=== PATIENT | male | born 1975 | race Caucasian/White ===

== ENCOUNTER 2018-07-22 01:25 | Emergency (ER) | payer OTHER ==
--- NOTE | 2018-07-22 01:58 | ED ---
Neurological HPI - HPI Summary HPI Summary: The patient is a 42 y/o M presenting to [facility] with a chief complaint of weakness and tingling in the right wrist and right-sided facial tingling starting this morning at 00:30. 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 He was in a position where his right arm was resting on a beam holding the sensor for about ten minutes, and he was using his left hand to tighten the sensor. His hand then suddenly became numb, and he had weakness in the hand as he was unable to grasp things afterwards. He was able to ambulate normally. He denies any pain or numbness in his neck. He felt a right- sided facial tingling when he arrived to the ED. He has not had these symptoms before. He has hx of diabetes, HTN, and hypercholesterolemia. - History of Current Complaint Chief Complaint: EDExtremityUpper Stated Complaint: RIGHT HAND/ARM NUMBNESS Time Seen by Provider: 07/22/18 01:34 Hx Obtained From: Patient Onset/Duration: Sudden Onset Timing: Sudden Onset Current Severity: Moderate Seizure Severity: Moderate Neurological Deficit Location: Facial - right, RUE - wrist Pain Intensity: 0 Pain Scale Used: 0-10 Numeric Character: Numbness/Tingling - in right wrist and right side of face Aggravating: Nothing Alleviating: Nothing Associated Signs and Symptoms: Positive: Weakness - in right wrist. Negative: Unsteady Gait, Neck Pain/Stiffness - Allergy/Home Medications Allergies/Adverse Reactions: Allergies Allergy/AdvReac Type Severity Reaction Status Date / Time bee venom protein (honey bee) Allergy Anaphylatic Verified 07/22/18 01:45 Shock insulation Allergy Severe Swelling Uncoded 07/22/18 01:30 Home Medications: Home Medications glipiZIDE TAB* 5 mg PO DAILY 07/22/18 [History Confirmed 07/22/18] PMH/Surg Hx/FS Hx/Imm Hx Endocrine/Hematology History: Reports: Hx Diabetes Cardiovascular History: Reports: Hx Hypercholesterolemia, Hx Hypertension Denies: Other Cardiovascular Problems/Disorders - FAMILY HISTORY. Infectious Disease History: No Infectious Disease History: Denies: Traveled Outside the [place] in Last 30 Days - Family History Known Family History: Negative: Cardiac Disease - Social History Alcohol Use: Occasionally Substance Use Type: Reports: None Smoking Status (MU): Never Smoked Tobacco Review of Systems Positive: Other - NEGATIVE: pain in neck Neurological: Other - unable to grasp tightly Positive: Weakness, Numbness - in the right wrist and right side of face All Other Systems Reviewed And Are Negative: Yes Physical Exam - Summary Physical Exam Summary: Appearance: Well-appearing, Well-nourished, lying in bed comfortably Skin: Warm, dry, no obvious rash Eyes: sclera anicteric, no conjunctival pallor ENT: mucous membranes moist, pharynx appears normal Neck: Supple, nontender Respiratory: Clear to auscultation, no signs of respiratory distress Cardiovascular: Normal S1, S2. No murmurs. Normal distal pulses in tibial and radial bilaterally. 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 Psychiatric: affect is normal, does not appear anxious or depressed Triage Information Reviewed: Yes Vital Signs On Initial Exam: Initial Vitals Temp Pulse Resp BP Pulse Ox 99.3 F 93 18 171/90 99 07/22/18 01:27 07/22/18 01:27 07/22/18 01:27 07/22/18 01:27 07/22/18 01:27 Vital Signs Reviewed: Yes - Destiny Coma Scale Best Eye Response: 4 - Spontaneous Best Motor Response: 6 - Obeys Commands Best Verbal Response: 5 - Oriented Coma Scale Total: 15 Diagnostics - Vital Signs Vital Signs Temp Pulse Resp BP Pulse Ox 07/22/18 01:27 99.3 F 93 18 171/90 99 - Laboratory Result Diagrams: 07/22/18 01:56 07/22/18 01:56 Lab Statement: Any lab studies that have been ordered have been reviewed, and results considered in the medical decision making process. - EKG 01:59 Cardiac Rate: NL - 82 BPM EKG Rhythm: Sinus Rhythm EKG Interpretation: P waves, QRS complex, and T waves and intervals are nml, no ischemic change Course/Dx - Course Course Of Treatment: The patient is a 42 y/o M presenting to [facility] with a chief complaint of weakness and tingling in the right wrist and right-sided facial tingling starting this morning at 00:30. 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 He was in a position where his right arm was resting on a beam holding the sensor for about ten minutes, and he was using his left hand to tighten the sensor. His hand then became numb, and he had weakness in the hand as he was unable to grasp things afterwards. He was able to ambulate normally. He denies any pain or numbness in his neck. He felt a right-sided facial tingling when he arrived to the ED. He has not had these symptoms before. He has hx of diabetes, HTN, and hypercholesterolemia. 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 Elevated BP noted. In the ED course, lab results show slightly increased glucose consistent with diabetes. EKG is normal. Brain CT is negative. He will be diagnosed and discharged home with instructions for radial nerve palsy based on results and symptoms. He will follow up with his PCP and Dr. Cam, neurology. Return precautions given for any new or worsening symptoms. Patient understands and agrees with this plan. - Diagnoses Provider Diagnoses: Radial nerve palsy Discharge - Sign-Out/Discharge Documenting (check all that apply): Patient Departure - Patient will be discharged home. - Discharge Plan Condition: Good Disposition: HOME Patient Education Materials: Radial Nerve Palsy (ED) Referrals: Quique Cam MD [Medical Doctor] - Rey Pena DO [Primary Care Provider] - Additional Instructions: I expect that your symptoms should improve over the next few days. If you have residual symptoms come Thursday, contact the neurologist listed for followup. - Billing Disposition and Condition Condition: GOOD Disposition: Home - Attestation Statements Document Initiated by Afshinibrosa: Yes Documenting Scribe: Yumiko Romero Provider For Whom Liam is Documenting (Include Credential): Dr. Eagle Pritchett MD Scribe Attestation: Yumiko Mai scribed for Dr. Eagle Pritchett MD on 07/22/18 at 0443. Scribe Documentation Reviewed: Yes Provider Attestation: The documentation as recorded by the Yumiko weiss accurately reflects the service I personally performed and the decisions made by me, Dr. Eagle Pritchett MD
[2018-07-22 02:04] LABS: ABS Basophils 0 10^3/ul (0-0.2); ABS Eosinophils 0.1 10^3/ul (0-0.6); ABS Lymphocytes 1.5 10^3/ul (1.0-4.8); ABS Monocytes 0.4 10^3/ul (0-0.8); ABS Neutrophils 4.3 10^3/ul (1.5-7.7); ABS Nucleated RBC 0.1 10^3/ul; Eosinophil % 2.3 % (0-6); Hematocrit 42 % (42-52); Hemoglobin 14.3 g/dl (14.0-18.0); Lymphocyte % 23.6 % (25-47); Mean Corpuscular HGB Conc 34 g/dl (31-36); Mean Corpuscular Hemoglobin 31 pg (27-31); Mean Corpuscular Volume 90 fL (80-94); Mean Platelet Volume 7.9 um3 (7.4-10.4); Nucleated Red Blood Cells % 0.8; Platelet Count 209 10^3/ul (150-450); Red Blood Count 4.64 10^6/ul (4.00-5.40); Red Cell Distribution Width 13 % (10.5-15); White Blood Count 6.4 10^3/ul (3.5-10.8)
[2018-07-22 02:09] LABS: INR 0.9 (0.77-1.02)
[2018-07-22 02:20] LABS: EGFR Non-African American 74.6 (>60)
--- NOTE | 2018-07-22 03:04 | RAD ---
EXAM: CT Head Without Intravenous Contrast CLINICAL HISTORY: 42 years old, male; Signs and symptoms; Weakness, extremity; Right; Additional info: Acute right forearm weakness TECHNIQUE: Axial computed tomography images of the head/brain without intravenous contrast. All CT scans at this facility use at least one of these dose optimization techniques: automated exposure control; mA and/or kV adjustment per patient size (includes targeted exams where dose is matched to clinical indication); or iterative reconstruction. COMPARISON: No relevant prior studies available. FINDINGS: Brain: Unremarkable. No hemorrhage. No significant white matter disease. No edema. Ventricles: Unremarkable. No ventriculomegaly. Bones/joints: Unremarkable. No acute fracture. Soft tissues: Unremarkable. Sinuses: Minimal mucosal thickening of the ethmoidal air cells. Mastoid air cells: Unremarkable as visualized. No mastoid effusion. IMPRESSION: No acute findings.
[2018-07-22 03:54] VITALS: BP 158/85
== END 2018-07-22 03:40 | disposition home or self-care (01) ==
LOC: ED 01:25
DX: G56.31 Lesion of radial nerve, right upper limb (principal); R53.1 Weakness; R20.0 Anesthesia of skin; E11.9 Type 2 diabetes mellitus without complications
CPT/HCPCS: 36415; 70450; 80053; 85025; 85610; 93005; 99283